=== PATIENT | male | born 1960 | race Caucasian/White ===

== ENCOUNTER 2017-10-10 12:14 | Inpatient (IN) | payer OTHER, MEDICAID ==
[~2017-10-10] VITALS: Ht 190.5 cm; Wt 86.2 kg
--- NOTE | 2017-10-10 12:21 | NUR ---
PT REC;D TO ER [facility]IA [facility] PT FAINTED WHILE IN THE BR . IV RT AC 18G HEPLOCKED . ABD OPEN CRUSTY NON BLEEDING WOUND LEFT FA 2 SPOTAS OF CRUSTY WOUNDS PT STATED HARD TO URINATE . PALE SKIN . HX ETOH EKG DONEAWAITING EVALUATION BY ER PROVIDER.
--- NOTE | 2017-10-10 12:24 | NUR ---
LABS DRAWN SENT TO LAB
[2017-10-10] MEDS ORDERED: IV NS 0.9% 1,000 ML BAG IV ONE ×2 (12:30→14:00)
[2017-10-10 12:54] LABS: BASOPHILS # (AUTO) 0.1 /CMM (0.0-0.2); BASOPHILS % (AUTO) 0.5 % (0.0-2.0); EOSINOPHILS # (AUTO) 0.1 /CMM (0.0-0.7); EOSINOPHILS % (AUTO) 1.3 % (0.0-6.0); HEMATOCRIT 30 % (39-51); HEMOGLOBIN 9.8 g/dL (13.5-17.5); LYMPHOCYTES # (AUTO) 0.8 /CMM (0.8-4.8); LYMPHOCYTES % (AUTO) 7.2 % (20.0-44.0); MEAN CORPUSCULAR HEMOGLOBIN 33 PG (26.0-33.0); MEAN CORPUSCULAR HGB CONC 33 g/dl (31.0-36.0); MEAN CORPUSCULAR VOLUME 99 fL (80-96); MONOCYTES # (AUTO) 0.9 /CMM (0.1-1.30); MONOCYTES % (AUTO) 7.4 % (2.0-12.0); NEUTROPHILS # (AUTO) 9.6 /CMM (1.8-8.9); NEUTROPHILS % (AUTO) 83.6 % (43.0-81.0); PLATELET COUNT (AUTO) 501 /CMM (150-450); RDW COEFFICIENT OF VARIATION 14.7 (11.5-15.0); WHITE BLOOD COUNT (AUTO) 11.5 K/uL (4.3-11.0)
[2017-10-10 13:05] LABS: CALCIUM, SERUM 8.9 mg/dL (8.5-10.1); CREATININE 1.4 mg/dL (0.6-1.3); POTASSIUM 4.5 mmol/L (3.5-5.1)
[2017-10-10 13:16] LABS: ALBUMIN 2.5 g/dL (3.4-5.0); BILIRUBIN,TOTAL 0.2 mg/dL (0.2-1.0); TOTAL PROTEIN, SERUM 6.2 g/dL (6.4-8.2)
[2017-10-10 13:17] LABS: TROPONIN I 0.011 ng/mL (0.00-0.056)
[2017-10-10 13:21] LABS: APPEARANCE,URINE Cloudy (CLEAR); BILIRUBIN,URINE SMALL (NEGATIVE); BLOOD, URINE Trace-intact Ery/uL (NEGATIVE); COLOR,URINE Yellow (YELLOW); KETONES,URINE 15 (NEGATIVE); LEUKOCYTE ESTERASE ,URINE Moderate (NEGATIVE); NITRITE, URINE Negative (NEGATIVE); PROTEIN,URINE 100 mg/dl (NEGATIVE); UGLUCOSE Negative (NEGATIVE); UROBILINOGEN,URINE 0.2 EU/dL (0.2)
[2017-10-10 13:34] LABS: EOSINOPHILS % (MANUAL) 1 % (0-4); LYMPHOCYTES % (MANUAL) 4 % (16-48); MONOCYTES % (MANUAL) 8 % (0-11.0); NEUTROPHILS % (MANUAL) 87 (42-76)
[2017-10-10] MEDS ORDERED: CEFTRIAXONE 1GM BAG (ER ONLY) 50 ML IV ONE (13:35)
[2017-10-10 13:51] LABS: BACTERIA,URINE 1+ /HPF (None Seen); SQUAMOUS EPITHELIAL CELL,UR Few /HPF (None Seen)
[2017-10-10] MEDS ORDERED: PANT40TA4 PO (13:51)
[2017-10-10] MEDS ORDERED: ASPI81TA2 PO (13:51)
[2017-10-10] MEDS ORDERED: GABA-534 PO (13:51)
[2017-10-10] MEDS ORDERED: FENO200C PO (13:51)
[2017-10-10] MEDS ORDERED: SILO8CAP PO (13:51)
[2017-10-10] MEDS ORDERED: ERGO500047 PO (13:51)
[2017-10-10] MEDS ORDERED: TRAM50TA2 PO (13:51)
[2017-10-10] MEDS ORDERED: FOLI1TAB16 PO (13:51)
[2017-10-10] MEDS ORDERED: CARI350T27 PO (13:51)
[2017-10-10 13:59] LABS: INR 0.92 (0.87-1.13); PROTHROMBIN TIME 9.6 SECS (9.5-12.7)
[2017-10-10] MEDS ORDERED: CEFTRIAXONE 1GM BAG (ER ONLY) 1 GM/50 ML PIGGYBACK IV ONE (14:00)
--- NOTE | 2017-10-10 14:00 | NUR ---
STEFFANY Majano GM INFUSING TO THE FLOOR. RT AT BEDSIDE PT TABLE FOR TRANSFER 120/1 JORDAN REPORT GIVEN TO COREEN DIXON
--- NOTE | 2017-10-10 16:55 | NUR ---
pt stable for transfer to floor report called
[2017-10-10 17:00] VITALS: BP 118/74
--- NOTE | 2017-10-10 17:00 | NUR ---
PATIENT ARRIVED TO MEDR UNIT. IN STABLE CONDITION. PATIENT IS ALERT AND ORIENTED. BEDSIDE RAILS ARE UP X2. BED IS LOCKED AND LOWERED. WILL CONTINUE TO MONITOR.
--- NOTE | 2017-10-10 19:00 | NUR ---
PATIENT IS ALERT AND ORIENTED. BEDSIDE RAILS ARE UP X2. BED IS LOCKED AND LOWERED. CALL LIGHT IS WITHIN REACH. WILL ENDORSE CARE TO BUILD MANAGER NURSE FOR CELESTINO.
[2017-10-10] MEDS ORDERED: LEVOFLOXACIN 500 MG /D5W 100ML 500 MG in PREMIX 1 EA IV SCH (19:30)
[2017-10-10] MEDS ORDERED: ONDANSETRON HCL/PF 4 MG/2 ML VIAL IVP PRN (19:30)
[2017-10-10] MEDS ORDERED: MAG HYDROX/AL HYDROX/SIMETH 30 ML UDC PO PRN (19:30)
[2017-10-10] MEDS ORDERED: ACETAMINOPHEN 325 MG TABLET PO PRN (19:30)
[2017-10-10] MEDS ORDERED: MAGNESIUM HYDROXIDE 30 ML UDC PO PRN (19:30)
[2017-10-10] MEDS ORDERED: Z GUARD REMEDY 2 OZ OINT TP PRN (19:30)
[2017-10-10] MEDS ORDERED: LORAZEPAM INJ 2 MG/ML VIAL IV PRN (19:30)
--- NOTE | 2017-10-10 19:35 | NUR ---
RN OPENING NOTES RECEIVED REPORT FROM DAYSHIFT RNARIELA. FOUND Pt AWAKE, RESTING IN BED, EATING DINNER. NO S/S OF ACUTE DISTRESS OR SOB NOTED. Pt DENIES ANY PAIN OR DIZZINESS, OR DISCOMFORT AT THIS TIME. Pt IS A/OX4, VERBAL, ABLE TO MAKE NEEDS KNOWN. ON TELE. IV ACCESS ON RAC #18G. SAFETY MEASURES IN PLACE. BED LOW, LOCKED, HOB ELEVATED, SIDE RAILS UP, CALL LIGHT AND BEDSIDE TABLE WITHIN REACH. WILL CONTINUE TO MONITOR Pt THROUGHOUT THE NIGHT FOR SAFETY.
[2017-10-10 20:00] VITALS: BP 131/82
[2017-10-10] MEDS ORDERED: LEVOFLOXACIN 500 MG /D5W 100ML 100 ML IV ONE (20:56)
[2017-10-10] MEDS: IV NS 0.9% 1,000 ML IV PRN (21:12)
[2017-10-10] MEDS ORDERED: ZOLPIDEM TARTRATE 5 MG TABLET ONE (21:38)
[2017-10-10] MEDS ORDERED: TRAMADOL HCL 50 MG TABLET ONE (21:39)
[2017-10-10] MEDS: TRAMADOL HCL 50 MG TABLET PO PRN (22:08)
[2017-10-10] MEDS: ZOLPIDEM TARTRATE 5 MG TABLET PO PRN (22:08)
[2017-10-11] VITALS (7 sets, daily range): BP systolic 104–151; BP diastolic 60–76
[2017-10-11] MEDS ORDERED: HYDROCODONE/APAP 5/325MG 1 EACH TABLET ONE (01:28)
[2017-10-11] MEDS: HYDROCODONE/APAP 5/325MG 1 EACH TABLET PO PRN ×3 (01:35→21:16)
[2017-10-11] MEDS ORDERED: TRAMADOL HCL 50 MG TABLET ONE (05:23)
[2017-10-11] MEDS: TRAMADOL HCL 50 MG TABLET PO PRN (05:38)
--- NOTE | 2017-10-11 06:35 | NUR ---
RN CLOSING NOTES NO SIGNIFICANT CHANGES IN Pt's CONDITION. Pt REMAINS STABLE AT THIS TIME. NO S/S OF ACUTE DISTRESS OR SOB NOTED DURING THE SHIFT. ALL NEEDS MET AND ATTENDED TO. SAFETY MEASURES IN PLACE. WILL ENDORSE TO DAYSHIFT RN FOR Pt's CELESTINO. TELE READING SB 54 (Pt's CONTINUOUS BASELINE)
[2017-10-11 07:35] LABS: EOSINOPHILS # (AUTO) 0.2 /CMM (0.0-0.7); EOSINOPHILS % (AUTO) 2.1 % (0.0-6.0); HEMATOCRIT 30 % (39-51); HEMOGLOBIN 9.8 g/dL (13.5-17.5); LYMPHOCYTES # (AUTO) 0.8 /CMM (0.8-4.8); LYMPHOCYTES % (AUTO) 9.3 % (20.0-44.0); MEAN CORPUSCULAR HEMOGLOBIN 32 PG (26.0-33.0); MEAN CORPUSCULAR HGB CONC 32 g/dl (31.0-36.0); MEAN CORPUSCULAR VOLUME 99 fL (80-96); MONOCYTES # (AUTO) 0.7 /CMM (0.1-1.30); MONOCYTES % (AUTO) 7.3 % (2.0-12.0); NEUTROPHILS # (AUTO) 7.2 /CMM (1.8-8.9); NEUTROPHILS % (AUTO) 81.3 % (43.0-81.0); PLATELET COUNT (AUTO) 517 /CMM (150-450); RDW COEFFICIENT OF VARIATION 15.6 (11.5-15.0); RED BLOOD CELL COUNT(AUTO) 3.06 MIL/uL (4.5-6.0); WHITE BLOOD COUNT (AUTO) 8.9 K/uL (4.3-11.0)
--- NOTE | 2017-10-11 07:42 | NUR ---
MS RN OPENING NOTES RECEIVED PATIENT IN STABLE CONDITION. PATIENT IS ALERT AND ORIENTED. RESTING IN BED. BEDSIDE RAILS ARE UP X2 . BED IS LOCKED AND LOWERED. CALL LIGHT IS WITHIN REACH. WILL CONTINUE TO MONITOR.
[2017-10-11 07:56] LABS: CALCIUM, SERUM 8.6 mg/dL (8.5-10.1); CREATININE 1.1 mg/dL (0.6-1.3); MAGNESIUM 2.2 mg/dL (1.8-2.4); PHOSPHORUS 4.3 mg/dL (2.5-4.9); POTASSIUM 4.5 mmol/L (3.5-5.1)
[2017-10-11] MEDS: FOLIC ACID 1 MG TABLET PO SCH (09:06)
[2017-10-11] MEDS: GABAPENTIN 300 MG CAPSULE PO SCH ×3 (09:06→16:14)
[2017-10-11] MEDS: ASPIRIN 81 MG TAB.CHEW PO SCH (09:06)
[2017-10-11] MEDS: IV NS 0.9% 1,000 ML IV PRN (09:12)
[2017-10-11 10:06] LABS: THYROID STIMULATING HORMONE 1.661 uIU/mL (0.358-3.74)
[2017-10-11] MEDS: ENOXAPARIN SODIUM 40 MG/0.4 ML DISP.SYRIN SQ SCH (10:24)
--- NOTE | 2017-10-11 18:21 | NUR ---
MS RN CLOSING NOTES PATIENT IS ALERT AND IN NO APPARENT DISTRESS. PATIENT IS RESTING IN BED. BEDSIDE RAILS ARE UP X 2. BED IS LOCKED AND LOWERED. CALL LIGHT IS WITHIN REACH. WILL ENDORSE CARE TO DATA CLERK NURSE FOR CELESTINO.
--- NOTE | 2017-10-11 19:30 | NUR ---
RN OPENING NOTES RECEIVED REPORT FROM DAYSHIFT RNARIELA. FOUND Pt AWAKE, RESTING IN BED, WATCHING TV. NO S/S OF ACUTE DISTRESS OR SOB NOTED. Pt DENIES ANY PAIN OR DIZZINESS, OR DISCOMFORT AT THIS TIME. Pt IS A/OX4, VERBAL, ABLE TO MAKE NEEDS KNOWN. ON TELE. IV ACCESS ON RAC #18G, IVF NS @150ML/HR. SAFETY MEASURES IN PLACE. BED LOW, LOCKED, HOB ELEVATED, SIDE RAILS UP, CALL LIGHT AND BEDSIDE TABLE WITHIN REACH. WILL CONTINUE TO MONITOR Pt THROUGHOUT THE NIGHT FOR SAFETY.
[2017-10-11] MEDS ORDERED: LEVOFLOXACIN 500 MG /D5W 100ML 500 MG in PREMIX 1 EA IV SCH (21:00)
[2017-10-12] VITALS: BP 140/75
[2017-10-12] MEDS: HYDROCODONE/APAP 5/325MG 1 EACH TABLET PO PRN ×3 (03:17→21:39)
[2017-10-12 04:00] VITALS: BP 134/80
--- NOTE | 2017-10-12 06:40 | NUR ---
RN CLOSING NOTES NO SIGNIFICANT CHANGES IN Pt's CONDITION. Pt REMAINS STABLE AT THIS TIME. NO S/S OF ACUTE DISTRESS OR SOB NOTED DURING SHIFT. ALL NEEDS MET AND ATTENDED TO. SAFETY MEASURES IN PLACE. WILL ENDORSE TO DAYSHIFT RN FOR Pt's CELESTINO. TELE READING SR 66.
[2017-10-12] MEDS: IV NS 0.9% 1,000 ML IV PRN (06:48)
[2017-10-12 07:16] LABS: BASOPHILS # (AUTO) 0.1 /CMM (0.0-0.2); BASOPHILS % (AUTO) 0.9 % (0.0-2.0); EOSINOPHILS # (AUTO) 0.1 /CMM (0.0-0.7); EOSINOPHILS % (AUTO) 2.1 % (0.0-6.0); HEMATOCRIT 29 % (39-51); HEMOGLOBIN 9.1 g/dL (13.5-17.5); LYMPHOCYTES # (AUTO) 0.8 /CMM (0.8-4.8); LYMPHOCYTES % (AUTO) 11.9 % (20.0-44.0); MEAN CORPUSCULAR HEMOGLOBIN 31 PG (26.0-33.0); MEAN CORPUSCULAR HGB CONC 32 g/dl (31.0-36.0); MEAN CORPUSCULAR VOLUME 99 fL (80-96); MONOCYTES # (AUTO) 0.7 /CMM (0.1-1.30); MONOCYTES % (AUTO) 9.9 % (2.0-12.0); NEUTROPHILS # (AUTO) 5.1 /CMM (1.8-8.9); NEUTROPHILS % (AUTO) 75.2 % (43.0-81.0); PLATELET COUNT (AUTO) 468 /CMM (150-450); RDW COEFFICIENT OF VARIATION 15.2 (11.5-15.0); WHITE BLOOD COUNT (AUTO) 6.7 K/uL (4.3-11.0)
--- NOTE | 2017-10-12 07:30 | NUR ---
PRICING SPECIALIST AM NOTES RECEIVED PATIENT IN BED, AAO X4, ON ROOM AIR, NOT IN ANY DISTRESS, DENIES PAIN AT THIS TIME, TELEMETRY READS SR HR 68, NO CHEST DISCOMFORT, NS AT 150 ML/HR INFUSING WELL TO RAC. SITE CLEAR, SEE NURSING FLOWSHEET FOR SKIN ISSUES, REGULAR DIET. TRIMBLE CATH IN PLACE, ADEQUATE AMOUNT YELLOW CLEAR URINE, SRU X 2, BED LOW LOCKED, CALL LIGHT IS WITHIN REACH. WILL CONTINUE TO MONITOR.
[2017-10-12 07:31] LABS: CALCIUM, SERUM 8.9 mg/dL (8.5-10.1); CREATININE 1.2 mg/dL (0.6-1.3); MAGNESIUM 1.9 mg/dL (1.8-2.4); PHOSPHORUS 4.3 mg/dL (2.5-4.9); POTASSIUM 4.4 mmol/L (3.5-5.1)
[2017-10-12 08:00] VITALS: BP 133/79
[2017-10-12] MEDS: GABAPENTIN 300 MG CAPSULE PO SCH ×3 (09:16→16:31)
[2017-10-12] MEDS: FOLIC ACID 1 MG TABLET PO SCH (09:16)
[2017-10-12] MEDS: ENOXAPARIN SODIUM 40 MG/0.4 ML DISP.SYRIN SQ SCH (09:17)
[2017-10-12] MEDS: ASPIRIN 81 MG TAB.CHEW PO SCH (09:19)
--- NOTE | 2017-10-12 09:30 | NUR ---
RN NOTES DC TELEMETRY PER DR. STERN. DUE MEDS GIVEN.
[2017-10-12] MEDS: PANTOPRAZOLE 40 MG TABLET.DR PO SCH (09:42)
[2017-10-12] MEDS: TRAMADOL HCL 50 MG TABLET PO PRN (09:43)
--- NOTE | 2017-10-12 10:54 | NUR ---
MS RN NOTES TRIMBLE CATH REMOVED. 1100 ML OUTPUT
[2017-10-12] MEDS ORDERED: CARISOPRODOL 350 MG TABLET PO PRN (15:00)
[2017-10-12 16:00] VITALS: BP 134/73
[2017-10-12 18:00] VITALS: BP 134/73
--- NOTE | 2017-10-12 18:18 | NUR ---
MS RN CLOSING NOTES PT RESTING IN BED COMFORTABLY, AAO X4, ON ROOM AIR, NOT IN ANY DISTRESS, DENIES PAIN AT THIS TIME, DENIES CHEST DISCOMFORT, RAC G18 FLUSHES WELL SITE CLEAR. REGULAR DIET. USES URINAL, AMBULATES TO BATHROOM WALKER AND ASSIST, FALL PRECAUTIONS, SRU X 2, BED LOW LOCKED, CALL LIGHT IS WITHIN REACH. ALL NEEDS MET. PM CARE DONE. WILL ENDORSE TO NEXT SHIFT FOR CELESTINO.
--- NOTE | 2017-10-12 19:35 | NUR ---
RN OPENING NOTES RECEIVED REPORT FROM NASEEMSDMERY RNGRADY. FOUND Pt AWAKE, RESTING IN BED, WATCHING TV. NO S/S OF ACUTE DISTRESS OR SOB NOTED. Pt IS A/OX4, VERBAL, ABLE TO MAKE NEEDS KNOWN. IV ACCESS ON RAC #18G, SL. SAFETY MEASURES IN PLACE. BED LOW, LOCKED, HOB ELEVATED, SIDE RAILS UP, CALL LIGHT AND BEDSIDE TABLE WITHIN REACH. WILL CONTINUE TO MONITOR Pt THROUGHOUT THE NIGHT FOR SAFETY.
[2017-10-12 20:00] VITALS: BP 122/70
--- NOTE | 2017-10-12 20:05 | NUR ---
Patient resides at [facility] [phone]/f [phone] ADDRESS: [address], [place]. He was prior ambulatory with assistive device as needed ,requires min assist with adl's. Current plan is to return [facility] once discharge. Addendum: 10/12/17 at 2005 by JOAQUINA LIM RN Amended: Links added.
[2017-10-12] MEDS: ZOLPIDEM TARTRATE 5 MG TABLET PO PRN (21:39)
[2017-10-13] MEDS: TRAMADOL HCL 50 MG TABLET PO PRN (06:20)
--- NOTE | 2017-10-13 06:24 | NUR ---
RN CLOSING NOTES NO SIGNIFICANT CHANGES IN Pt's CONDITION. Pt REMAINS STABLE AT THIS TIME. NO S/S OF ACUTE DISTRESS OR SOB NOTED DURING THE SHIFT. ALL NEEDS MET AND ATTENDED TO. SAFETY MEASURES IN PLACE. WILL ENDORSE TO DAYSKRISTEN RN FOR Pt's CELESTINO. Addendum: 10/13/17 at 0627 by LAUREN PETERSON RN Pt IS NOW ON ISOLATION FOR ESBL OF URINE. Pt AWARE.
--- NOTE | 2017-10-13 07:30 | NUR ---
MS RN am NOTES PT RESTING IN BED, AAO X4, ON ROOM AIR, NOT IN ANY DISTRESS, DENIES PAIN AT THIS TIME, DENIES CHEST DISCOMFORT, RAC G18 FLUSHES WELL SITE CLEAR. REGULAR DIET. USES URINAL, AMBULATES TO BATHROOM WALKER AND ASSIST, FALL PRECAUTIONS, SRU X 2, BED LOW LOCKED, CALL LIGHT IS WITHIN REACH. ISOLATION PRECAUTION OBSERVED. WILL CONTINUE TO MONITOR.
[2017-10-13 07:39] LABS: BASOPHILS # (AUTO) 0.1 /CMM (0.0-0.2); BASOPHILS % (AUTO) 0.9 % (0.0-2.0); EOSINOPHILS # (AUTO) 0.2 /CMM (0.0-0.7); EOSINOPHILS % (AUTO) 2.7 % (0.0-6.0); HEMATOCRIT 33 % (39-51); LYMPHOCYTES # (AUTO) 1.5 /CMM (0.8-4.8); LYMPHOCYTES % (AUTO) 17.2 % (20.0-44.0); MEAN CORPUSCULAR HEMOGLOBIN 33 PG (26.0-33.0); MEAN CORPUSCULAR HGB CONC 33 g/dl (31.0-36.0); MEAN CORPUSCULAR VOLUME 99 fL (80-96); MONOCYTES # (AUTO) 0.8 /CMM (0.1-1.30); MONOCYTES % (AUTO) 9.3 % (2.0-12.0); NEUTROPHILS # (AUTO) 6.3 /CMM (1.8-8.9); NEUTROPHILS % (AUTO) 69.9 % (43.0-81.0); PLATELET COUNT (AUTO) 587 /CMM (150-450); RDW COEFFICIENT OF VARIATION 15.7 (11.5-15.0); RED BLOOD CELL COUNT(AUTO) 3.38 MIL/uL (4.5-6.0); WHITE BLOOD COUNT (AUTO) 8.9 K/uL (4.3-11.0)
[2017-10-13 07:41] LABS: CALCIUM, SERUM 9.4 mg/dL (8.5-10.1); CREATININE 1.2 mg/dL (0.6-1.3); MAGNESIUM 2.5 mg/dL (1.8-2.4); PHOSPHORUS 4.8 mg/dL (2.5-4.9); POTASSIUM 4.5 mmol/L (3.5-5.1)
[2017-10-13 08:00] VITALS: BP 120/75
[2017-10-13] MEDS: ENOXAPARIN SODIUM 40 MG/0.4 ML DISP.SYRIN SQ SCH (08:50)
[2017-10-13] MEDS: ASPIRIN 81 MG TAB.CHEW PO SCH (08:51)
[2017-10-13] MEDS: FOLIC ACID 1 MG TABLET PO SCH (08:51)
[2017-10-13] MEDS: GABAPENTIN 300 MG CAPSULE PO SCH (08:51)
[2017-10-13] MEDS: PANTOPRAZOLE 40 MG TABLET.DR PO SCH (08:51)
[2017-10-13] MEDS ORDERED: FENOFIBRATE NANOCRYS (145 MG) 145 MG TABLET PO SCH (09:00)
[2017-10-13] MEDS ORDERED: Medication Not On Formulary EA (Fenofibrate,Micronized (Fenofibrate) 200 MG) PO SCH (09:00)
[2017-10-13] MEDS: HYDROCODONE/APAP 5/325MG 1 EACH TABLET PO PRN (09:30)
--- NOTE | 2017-10-13 09:30 | NUR ---
MS RN NOTES DUE MEDS GIVEN.
[2017-10-13] MEDS ORDERED: NITR100C PO (10:36)
--- NOTE | 2017-10-13 11:17 | NUR ---
MS RN NOTES FLUSHOT ADMINISTERED TO RT DELTOID.
[2017-10-13] MEDS ORDERED: FLU VACC QS 2017-18(36MOS+)/PF 0.5 ML DISP.SYRIN IM ONE (11:30)
[2017-10-13] MEDS ORDERED: HYDR-552 PO (11:43)
[2017-10-13 12:40] VITALS: BP 120/75
--- NOTE | 2017-10-13 12:40 | NUR ---
MS RN NOTES PATIENT DISCHARGED TODAY TO [facility] PER MD IN STABLE CONDITION. PROVIDED DC INSTRUCTIONS, MED RECON/PRESCRIPTION AND HEALTH TEACHINGS. PATIENT TO FOLLOW UP WITH PCP IN 1-2 WEEKS AND WILL MAKE OWN APPOINTMENT. IV ACCESS TO RT AC REMOVED, CATH TIP COMPLETE, NO BLEEDING, DRESSING IN PLACE. REFUSE TO HAVE PICTURE OF SKIN ISSUES TAKEN, DESPITE EXPLAINING ABOUT DEPARTMENT POLICY. NO BELONGINGS. ALL PAPERWORKS SIGNED. ACCOMPANIED TO LOBBY VIA WHEELCHAIR, AND GO FACILITY VIA [facility]AXI.
== END 2017-10-13 12:30 | DRG 689 ==
LOC: ER 12:19 → TELE 14:07 → MED 10-12 09:25
PROVIDERS: ADMIT Internal Medicine; ATTEND Internal Medicine
DX: N39.0 Urinary tract infection, site not specified (principal); N17.0 Acute kidney failure with tubular necrosis; G62.9 Polyneuropathy, unspecified; D50.9 Iron deficiency anemia, unspecified; F10.20 Alcohol dependence, uncomplicated; B96.20 Unspecified Escherichia coli [E. coli] as the cause of diseases classified elsewhere; D63.8 Anemia in other chronic diseases classified elsewhere; E78.5 Hyperlipidemia, unspecified; E86.0 Dehydration; F17.210 Nicotine dependence, cigarettes, uncomplicated; I10 Essential (primary) hypertension; I73.9 Peripheral vascular disease, unspecified; K21.9 Gastro-esophageal reflux disease without esophagitis; N40.0 Benign prostatic hyperplasia without lower urinary tract symptoms; Z88.0 Allergy status to penicillin; N40.1 Benign prostatic hyperplasia with lower urinary tract symptoms; Z16.12 Extended spectrum beta lactamase (ESBL) resistance; S70.02XA Contusion of left hip, initial encounter; X58.XXXA Exposure to other specified factors, initial encounter; Y93.9 Activity, unspecified; Y92.129 Unspecified place in nursing home as the place of occurrence of the external cause
CPT/HCPCS: 36415; 70450-TC; 71010-TC; 80048-TC; 80061-TC; 80076-TC; 81000-TC; 82306; 82728-TC; 82746; 83540-TC; 83735-TC; 84100-TC; 84439-TC; 84443-TC; 84484-TC; 85025-TC; 85730-TC; 87081-TC; 87086-TC; 87186-TC; 93307-TC; A4216; A4606; J0696; J1650; J1956; J7030; Q2036; Z7610